=== PATIENT | male | born 1970 | race Caucasian/White ===

== ENCOUNTER 2025-01-03 18:06 | Emergency (ER) | payer SELFPAY ==
[2025-01-03 18:10] VITALS: BP 171/106
--- NOTE | 2025-01-03 21:18 | ED.GENMED ---
History of Present Illness
General
Chief Complaint: Back Pain
Time Seen by Provider: 01/03/25 21:14
History of Present Illness
History of Present Illness:
PAST MEDICAL HISTORY AND REVIEW OF OLD RECORDS
- The patient has chronic back issues and also has a history of colorectal cancer. He has a known herniated disc at L3-4
Note:
CHIEF COMPLAINT(S)
Low back pain and management of chronic lumbar spondylosis and disc herniation at L4.
HISTORY OF PRESENT ILLNESS
The patient is a 54-year-old male with a history of lumbar spondylosis and a herniated disc at L4, presenting with chronic back pain. He states, 'Its been really bad,' and describes ongoing issues that have been exacerbated after his move to the
area three weeks ago for caregiving responsibilities. The pain is primarily located in the low and middle back, without radiation down the legs, and is exacerbated by sitting. The patient has attempted various [id number] remedies without
success, including Tylenol, lidocaine patches, Biofreeze, and Icy Hot. He reports difficulty sleeping and obtaining a timely appointment with a primary care physician. A CT scan in June indicated a herniated disc at level L3-4. The patient
wishes to start a new job soon but is struggling with pain management. He reports no fever associated with this episode and denies any recent narcotic use in the last three years.
PAST MEDICAL AND SURGICAL HISTORY
The patient has a significant history of colorectal cancer, for which he underwent surgery approximately five years ago. He reports being in remission with recent colonoscopy and PET scans in June returning clean. The patient has not had any
surgeries for his back condition.
CHRONIC MEDICAL CONDITIONS SIGNIFICANTLY AFFECTING CARE
- Lumbar spondylosis
- Herniated disc at L4
- History of colorectal cancer
SOCIAL DETERMINANTS AFFECTING HEALTH
The patient recently moved to care for a seriously ill family member and has experienced challenges in accessing timely healthcare.
ALLERGIES
Anaphylaxis to Flexeril (cyclobenzaprine) and Bactrim (trimethoprim/sulfamethoxazole).
MEDICATIONS
The patient has past exposure to Gabapentin with uncertain effectiveness in managing symptoms and no current medications mentioned.
REVIEW OF SYSTEMS
- Musculoskeletal: Chronic low back pain, localized to lower and middle back
- Gastrointestinal: History of colorectal cancer with current stable condition
- Neurological: No shooting pain down legs, localized back pain
PHYSICAL EXAM
General: Alert, no acute distress other than when he tries to move the thoracolumbar spine
Skin: Warm, dry.
Head: Normocephalic, atraumatic.
Neck: Supple, trachea midline.
Eye, Ears, Nose, Mouth, and Throat: Oral mucosa moist.
Cardiovascular: Normal peripheral perfusion, No edema.
Respiratory: Respirations are non-labored.
Gastrointestinal: Abdomen nondistended.
Back: Decreased active range of motion of the lumbar spine related to pain, no significant midline tenderness, some vague tenderness to palpation noted
Musculoskeletal: Normal range of motion, normal strength.
Neurological: Alert and oriented to person, place, time, and situation. No focal neurological deficit observed. Excellent strength in the lower extremities
Psychiatric: Cooperative, appropriate mood & affect.
PROBLEM LIST
Acute:
- Chronic low back pain exacerbation
Chronic:
- Lumbar spondylosis
- Herniated disc at L4
- History of colorectal cancer
PLAN
1. Prescribe a very short course of low-dose analgesics (12 pills) for acute pain management.
2. Recommend the initiation of physical therapy to aid in managing chronic back pain.
3. Advise patient to continue seeking a local primary care physician for ongoing management and follow-up.
4. Send prescription to the patients preferred pharmacy at [facility].
DIFFERENTIAL DIAGNOSIS
The Differential Diagnosis includes, in no particular order and is not limited to:
1. Lumbar spondylosis
2. Disc herniation
3. Osteoarthritis of the spine
4. Spinal stenosis
5. Muscle strain
6. Degenerative disc disease
7. Ankylosing spondylitis
8. Fracture or trauma to the spine
9. Facet joint syndrome
10. Metastatic spinal lesions
RADIOLOGY
- The x-ray shows no acute compression fracture and multilevel degenerative changes with moderate degenerative changes at L4-5 and L5-S1
SUMMARY OF ENCOUNTER
The patient presented to the emergency department due to chronic low back pain associated with lumbar spondylosis and a herniated disc at L4. The pain has been exacerbated due to recent life changes, including a move and increased caregiving
responsibilities. Previous treatments with gabapentin, Cymbalta, and topical analgesics were ineffective. The patients history of colorectal cancer treatment has impacted medication tolerance. After evaluating the options, I decided to prescribe a
very short course of oxycodone for acute pain management, recognizing its past effectiveness for the patient. Additionally, a prescription for physical therapy was provided to aid in managing his chronic pain condition.
ASSESSMENT
Exacerbation of chronic low back pain due to lumbar spondylosis and disc herniation at L4.
PLAN
Start a very short course of oxycodone for acute pain relief. Prescribe physical therapy to aid in chronic pain management.
MEDICATION RECONCILIATION
A very short course of oxycodone was prescribed to manage acute pain.
MEDICAL DECISION MAKING
- Number and Complexity of Problems Addressed: Chronic conditions affecting care include lumbar spondylosis, herniated disc at L4, and history of colorectal cancer. Differential diagnosis considerations include lumbar spondylosis, disc herniation,
osteoarthritis of the spine, and others.
- Risk: Prescription medication was prescribed due to patient history and the ineffectiveness of previous treatments, with careful consideration of patients medication tolerance post-cancer treatment. Social determinants, including the patients
recent move and caregiving responsibilities, have significantly affected care access and engagement in treatment options.
DIAGNOSIS
Exacerbation of chronic low back pain with lumbar spondylosis and herniated disc (ICD-10-CM M51.26).
Phy Exam
Physical Exam
Physical Exam:
See HPI
Course
Orders/Labs/Results
Orders:
Orders
01/03/25 18:16
CR Lumbar Spine Comp Min 4 Vw* Urgent
Comment:
Reason For Exam: pain
Vital Signs
Initial and Last Documented VS:
Initial Vital Signs
Temp Pulse Resp BP Pulse Ox
36.6 C 69 20 171/106 99
01/03/25 18:10 01/03/25 18:10 01/03/25 18:10 01/03/25 18:10 01/03/25 18:10
Last Documented Vital Signs
Temp Pulse Resp BP Pulse Ox
36.7 C 59 18 148/94 98
01/03/25 21:37 01/03/25 21:37 01/03/25 21:37 01/03/25 21:37 01/03/25 21:37
*Pulse Oximetry
SaO2: 99
Oxygen Mode of Delivery: Room air
Patient hypoxic: no
*Critical Care Note
Total Time (30-74mins, 75-104mins- exclusive of procedures): Not Applicable
ED Attending Note
-
Portions of this chart may have been created with voice recognition software.� Occasional wrong word or��sound alike� substitutions may have occurred due to the inherent limitations of voice recognition software.
Discharge Plan
Departure
Patient Disposition: Home (Routine Discharge)
Date of Disposition: 01/03/25
Time of Disposition: 21:38
Patient with high blood pressure during this ER visit?: Yes
Discharge Problem:
Low back pain
Instructions: Low Back Pain (DC)
Prescriptions:
New
oxycodone-acetaminophen [Percocet] 5-325 mg tablet
1 - 2 tab PO Q8H PRN (Reason: Pain) Qty: 14 0RF
Interventions
Interventions:
*Risk Screen - Suicide Last Done: 01/03/25 18:10
*General Assessment Last Done: 01/03/25 18:10
*Neglect/Abuse Screening Last Done: 01/03/25 18:10
*ED- Fall Risk Assessment Last Done: 01/03/25 21:36
*ED COVID-19 Vaccine History Last Done: 01/03/25 21:36
ED-Musculoskeletal Assessment Last Done: 01/03/25 21:55
Discharge Date and Time
Print Language: PASHTO
[2025-01-03 21:36] VITALS: BMI 35.9
[2025-01-03 21:37] VITALS: BP 148/94
== END 2025-01-03 22:05 | disposition home or self-care (01) ==
LOC: EMR 18:06
PROVIDERS: EMERGENCY PHYSICIAN Emergency Medicine
DX: M54.50 Low back pain, unspecified (principal); Z85.048 Personal history of other malignant neoplasm of rectum, rectosigmoid junction, and anus; Z88.1 Allergy status to other antibiotic agents; Z88.2 Allergy status to sulfonamides
CPT/HCPCS: 99283; 72110